=== PATIENT | female | born 1950 | race Two or more races ===

== ENCOUNTER 2024-04-22 12:06 | Emergency (ER) | payer MEDICARE, MEDICAID, SELFPAY ==
--- NOTE | 2024-04-22 | XR_ITS ---
Examination: MRI brain without intravenous contrast. Date and time of exam: April 22, 2024 1757 hours INDICATIONS: Onset episodes of dizziness ataxia inability to walk today Technique: Multiple axial and sagittal images of the brain obtained. Siemens high-resolution 1.5 Mili short bore scanners utilized. Sagittal sections, T1-weighted, TR 500, TE 14, are performed. Axial sections proton-density and T2-weighted have been obtained. Inversion recovery axial images, TR 9, 260, TE 111, TI 2500. Diffusion weighted images, axial sections, TR 4800, TE 128, B value 1000 Axial sections, ADC map, TR 4800, TE 128 Findings: Enlargement of the sella turcica is not present. The optic chiasm and infundibular are not remarkable. Prepontine and interpeduncular cisterns are not enlarged. There is no localized enlargement of the medulla or jane. Fourth ventricle and cerebellar tonsils appear normal in position. No subacute area of hemorrhage density is seen. Mass in the cerebellopontine angle region is not evident. Globes symmetrical. Orbital musculature including medial lateral rectus muscles do not exhibit abnormality. Diffusion-weighted images demonstrate no foci of restricted diffusion. Increased white matter signal prominent Mass effect upon the ventricular system is not identified. Impression: Negative for acute hemorrhage mass effect or midline shift No acute infarct Bilateral mastoiditis Prominent chronic microvascular white matter change If dizziness persists, recommend follow-up brain MRI post intravenous contrast, also consider carotid Doppler sonography follow-up
[2024-04-22 12:16] VITALS: BP 147/87; PULSE 77; RESP 17; TEMP 36.7; O2SAT 98; BMI 29.5
--- NOTE | 2024-04-22 12:25 | XR_ITS ---
Examination: CT brain head without contrast. 2-D sagittal coronal reconstructions Date and time of exam:April 22, 2024 1319 hours INDICATIONS: Headaches dizziness today, history bilateral chronic mastoiditis, right otitis externa on CT middle inner ear October 23, 2023 CTDI: vol (mGy):47.9 DLP: (mGycm):1044 Technique: Multiple CT axial sections of the brain have been obtained, 5 mm slice thickness. Contrast has not been administered. 2-D sagittal, coronal reconstructions have been obtained Low dose protocols were performed. One or more of the following dose reduction techniques were used; automated exposure control, adjustment of the mA and/or KV according to patient size, use of iterative reconstruction technique. Findings: No significant ventricular enlargement. Intra-axial or extra-axial hemorrhage density is not seen. No mass effect or midline shift Basal cisterns are not remarkable. Fourth ventricle is midline. Cranial vault intact. Impression: Negative for acute hemorrhage, mass effect or midline shift Advise clinical correlation follow-up accordingly
--- NOTE | 2024-04-22 12:33 | PD.EDRME ---
Rapid Medical Screening Exam RME Arrival date/time: 04/22/24 12:06 73-year-old female presents emergency department complaint of headache and dizziness Chief Complaint: Dizziness Vital signs: Vital Signs Temperature 98.0 F 04/22/24 12:16 Pulse Rate 77 04/22/24 12:16 Respiratory Rate 17 04/22/24 12:16 Blood Pressure 147/87 H 04/22/24 12:16 Pulse Oximetry (%) 98 04/22/24 12:16 Oxygen Delivery Method Room Air 04/22/24 12:16
[2024-04-22 13:07] LABS: Basophils % (Auto) 0 % (0-2.5); Eosinophils # (Auto) 0.1 Thou/mm3 (0.0-0.5); Eosinophils % (Auto) 2 % (0-10); Hematocrit 34.9 % (36.0-46.0); Hemoglobin 12.3 g/dL (12.0-16.0); Immature Granulocytes % (Auto) 0 % (0-0); Immature Granulocytes Auto 0.01 Thou/mm3 (0.00-0.00); Lymphocytes # (Auto) 2.1 Thou/mm3 (1.0-4.8); Lymphocytes % (Auto) 37 % (10-50); Mean Corpuscular HGB Conc 35.2 g/dl (31.0-37.0); Mean Corpuscular Hemoglobin 32.1 pg (25.0-35.0); Mean Corpuscular Volume 91 fL (80-100); Monocytes # (Auto) 0.3 Thou/mm3 (0.0-0.8); Monocytes % (Auto) 5 % (0-12); Neutrophils # (Auto) 3.1 Thou/mm3 (1.8-7.7); Neutrophils % (Auto) 55 % (37-80); Nucleated Red Blood Cell % 0 /100 WBC (0); Platelet Count 124 Thou/mm3 (140-440); RDW Standard Deviation 40.6 fL (36.4-46.3); Red Blood Count 3.83 Miln/mm3 (4.00-5.20); White Blood Count 5.7 Thou/mm3 (3.6-11.0)
[2024-04-22 13:24] LABS: Alanine Aminotransferase 20 U/L (10-49); Albumin, Serum 4.5 gm/dL (3.4-4.8); Albumin/Globulin Ratio 1.5 (1.2-2.2); Alkaline Phosphatase 73 U/L (46-116); Anion Gap 8 (7-16); Aspartate Amino Transferase 21 U/L (0-34); BUN/Creatinine Ratio 13 Ratio (12-20); Bilirubin,Total 0.6 mg/dL (0.3-1.2); Blood Urea Nitrogen 21 mg/dL (9-23); Calcium 9.6 mg/dL (8.3-10.6); Calcium (Corrected) 9.6 mg/dL (8.5-10.1); Carbon Dioxide 26.5 mMol/L (20.0-31.0); Chloride 102 mMol/L (98-107); Creatinine (Component) 1.6 mg/dL (0.6-1.3); Estimated Creatinine Clearance 32.6 mL/min (>60); Glucose 226 mg/dL (74-106); Osmolality,Calculated 281 (275-295); Potassium 4.5 mMol/L (3.4-5.1); Sodium 136 mMol/L (136-145); Total Protein 7.5 gm/dL (5.7-8.2); eGFR 34 See Note
--- NOTE | 2024-04-22 13:56 | EDNOTE_ITS ---
ED Dizzyness RME/HPI General Chief Complaint: Dizziness Stated Complaint: DIZZINESS, SANTOS Time Seen by Provider: 04/22/24 13:43 Arrival date/time: 04/22/24 12:06 RME / HPI RME / HPI Narrative: 73-year-old female presents emergency department complaint of headache and dizziness. Onset of symptoms since yesterday as sudden onset of dizziness, described as unable to walk due to balance problem. Associated with occipital headache. Described as dull extremity mild. Patient denies any spinning sensation. Denies any fever, slurring speech, upper or lower extremity lateralization sign. Denies any trauma or fall. No medications taken prior to arrival. Patient has significant history of lymphoma. Related Data Home Medications ?Medication ?Instructions ?Recorded ?Confirmed lorazepam 1 mg tablet 05/01/20 05/01/20 prochlorperazine maleate 10 mg 05/01/20 05/01/20 tablet Previous Rx's ?Medication ?Instructions ?Recorded ondansetron HCl 4 mg tablet 4 mg PO Q8H PRN nausea and 05/02/20 (Zofran) vomiting #30 tabs ciprofloxacin HCl 500 mg tablet 500 mg PO BID #20 tabs 10/23/23 (Cipro) amoxicillin 875 mg-potassium 1 tab PO BID #14 tabs 04/22/24 clavulanate 125 mg tablet meclizine 50 mg tablet 50 mg PO BID PRN dizziness #20 tabs 04/22/24 Allergies Allergy/AdvReac Type Severity Reaction Status Date / Time hydrocodone [From Vicodin] Allergy Severe Vomiting Verified 10/23/23 11:07 morphine Allergy Severe Vomiting Verified 10/23/23 11:07 tramadol Allergy Severe Dizziness Verified 10/23/23 11:07 Review of Systems Review of Systems Narrative Review of Systems: Review of system reviewed and within normal limits except mentioned in HPI ED Exam Narrative Physical exam: VITAL SIGNS: Reviewed. GENERAL APPEARANCE: Alert and interactive, follows commands, no acute distress, HEAD AND FACE: Non-traumatic. ENT: PERRL, pink conjunctivitis, eyelid no trauma, Mucous membrane moist. No nystagmus noted, tympanic membrane bilateral, no bulging, no erythema no fluid noted NECK: Supple, nontender, no nuchal rigidity. CHEST: No tenderness, no crepitus, no paradoxical movement, no retractions. LUNGS: Clear, well ventilated, symmetric, no rales, no wheezing, no ronchi, no stridor, good breath sounds bilaterally. HEART: Regular rate, regular rhythm, no murmur, no gallops. ABDOMEN: Soft, positive bowel sounds, nondistended, no guarding, nontender, no rebound, no masses, RECTAL: Deferred. GENITAL: Deferred. NEUROLOGICAL: Gross motor function intact sensory function intact, Appropriate for age. MUSCULOSKELETAL: low back nontender, full range of motion. EXTREMITIES: Nontender, full range of motion. SKIN: Color pink, dry, no rash, no lacerations, no abrasions, no contusions. LYMPHATICS: Deferred. Course Quality Measures none Orders Category Date Time Status MRI Screening NOW Care 04/22/24 13:55 Active MRI Screening NOW Care 04/22/24 13:[address] head/brain wo con Stat Exams 04/22/24 12:25 Completed MR head/brain wo con Stat Exams 04/22/24 Completed CBC Stat Lab 04/22/24 12:38 Completed CMP [Comprehensive Metabolic Panel] Stat Lab 04/22/24 12:38 Completed Amoxicillin/Pot Clav 875 [Augmentin 875] Med 04/22/24 19:22 Discontinued 1 tab PO X1 ONE Meclizine HCl [Antivert] Med 04/22/24 13:55 Discontinued 50 mg PO X1 ONE Ondansetron Odt [Zofran Odt] Med 04/22/24 13:55 Discontinued 4 mg PO X1 ONE Vital Signs Vital signs: Vital Signs Temperature 98.0 F 04/22/24 12:16 Pulse Rate 77 04/22/24 12:16 Respiratory Rate 17 04/22/24 12:16 Blood Pressure 147/87 H 04/22/24 12:16 Pulse Oximetry (%) 98 04/22/24 12:16 Oxygen Delivery Method Room Air 04/22/24 12:16 Dizziness MDM Narrative MDM Narrative:: MRI of the brain showed Negative for acute hemorrhage mass effect or midline shift No acute infarct Bilateral mastoiditis Prominent chronic microvascular white matter change If dizziness persists, recommend follow-up brain MRI post intravenous contrast, also consider carotid Doppler sonography follow-up Results discussed with the patient. Patient received Augmentin and meclizine in the emergency room with complete resolution of dizziness. Patient is ambulatory with stable gait. Patient data External records reviewed:: None Clinical information provided by:: none Social determinants that could affect healthcare access:: none Patient has the following chronic illnesses:: Diabetes mellitus, lymphoma How is presenting disease/condition affected by chronic disease/condition?: exacerbated by Evaluation data The following diagnostics were reviewed and interpreted by me:: lab results and radiology exam(s) Lab and/or radiology exams considered but not ordered:: None Interpretation Summary: MRI of the brain showed Negative for acute hemorrhage mass effect or midline shift No acute infarct Bilateral mastoiditis Prominent chronic microvascular white matter change If dizziness persists, recommend follow-up brain MRI post intravenous contrast, also consider carotid Doppler sonography follow-up Medications / Prescriptions Medications or Prescriptions considered but not ordered:: None Medication administrations:: Medication Administration History Discontinued Medications Amoxicillin/Clavulanate Potassium (Amoxicillin/Pot Clav 875 Tablet) 1 tab PO X1 ONE Stop: 04/22/24 19:23 Meclizine HCl (Meclizine Hcl 25 Mg Tablet) 50 mg PO X1 ONE Stop: 04/22/24 13:56 Last Admin: 04/22/24 14:14 Dose: 50 mg Documented By: SILVIA Ondansetron HCl (Ondansetron Odt 4 Mg Tabrap) 4 mg PO X1 ONE; Protocol Stop: 04/22/24 13:56 Last Admin: 04/22/24 14:14 Dose: 4 mg Documented By: SILVIA Meclizine Augmentin Consultations Consultation(s) initiated? (list below): No Diagnosis Dizziness Differential Diagnosis: benign paroxysmal positional vertigo, vertebral basilar insufficiency and other (Dizziness,) Most likely diagnosis given after review of the tests above:: Dizziness, acute mastoiditis Admission Indicated Admission indicated?: not indicated Admission Request Was there a request for admission?: No Disposition Plan Disposition Plan: Discharge Discharge Attestation Discharge Attestation: The patient and all family members were given an opportunity to ask questions and understood the discharge instructions. Discharge instructions specifically effects, indications for sooner follow up or return to the emergency department, and the expected course of current diagnosis. Patient condition: Stable Discharge Plan Plan Patient Disposition: HOME (Self Care) Disposition Comment: stable Prescriptions/Referrals Prescriptions/Med Rec: New amoxicillin-pot clavulanate 875-125 mg tablet 1 tab PO BID Qty: 14 0RF meclizine 50 mg tablet 50 mg PO BID PRN (Reason: dizziness) Qty: 20 0RF No Action prochlorperazine maleate 10 mg tablet lorazepam 1 mg tablet Patient Comments: TK 1 T PO QD HS PRF [employer] ondansetron HCl [Zofran] 4 mg tablet 4 mg PO Q8H PRN (Reason: nausea and vomiting) Qty: 30 0RF ciprofloxacin HCl [Cipro] 500 mg tablet 500 mg PO BID Qty: 20 0RF Referrals: Falguni Reis PA-C [Primary Care Provider] - In 1 week Problem List Clinical Impression: Dizziness, Acute mastoiditis Patient/Caregiver Discharge Instructions Discharge Activity: activity as tolerated Education Materials: ED Dizziness, Uncertain Cause Additional Instructions: Thank you for the opportunity for serving you today. You are stable for d ischarged . You are advised to: Follow-up with your PCP in 1 to 2 days and asked for referral to ENT Return to ED for worsening of symptoms Increase oral fluids Take medication as prescribed Print Language: Guatemalan Stand Alone Forms: [employer] Award Info., Patient Portal Info Letter FERNANDO/COURTNEY Supervising Physician FERNANDO/COURTNEY Supervising Physician: MD Remy
[2024-04-22] MEDS: ONDANSETRON ODT 4 MG TABRAP PO (14:14)
[2024-04-22] MEDS: MECLIZINE HCL 25 MG TABLET 50 MG PO (14:14)
[2024-04-22 16:07] VITALS: BP 132/85; PULSE 74; RESP 18; TEMP 37; O2SAT 98
[2024-04-22 18:42] VITALS: BP 150/86; PULSE 78; RESP 16; TEMP 37.1; O2SAT 98
[2024-04-22] MEDS: AMOXICILLIN/POT CLAV 875 TABLET 1 TAB PO (19:36)
== END 2024-04-22 19:55 | disposition home or self-care (01) ==
PROVIDERS: Nurse Practitioner Primary Care; Emergency Provider Emergency Medicine; PCP Physician Assistant
DX: H70.003 Acute mastoiditis without complications, bilateral (principal); R42 Dizziness and giddiness
CPT/HCPCS: 36415; 70450; 70551; 80053; 85025; 99284; Q0162; A9270

== ENCOUNTER 2024-05-17 11:57 | Emergency (ER) | payer MEDICARE, MEDICAID, SELFPAY ==
[2024-05-17 11:59] VITALS: BMI 28.3
--- NOTE | 2024-05-17 12:18 | EKG_ITS ---
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
[2024-05-17 12:47] VITALS: BP 114/78; PULSE 110; RESP 18; TEMP 36.9; O2SAT 98
--- NOTE | 2024-05-17 13:12 | XR_ITS ---
Examination: PA lateral chest 2 views TECHNIQUE: Upright PA lateral chest 2 views Exam date and time: May 17, 2024 Comparison April 29, 2020 INDICATIONS: Coughing weakness dizziness beginning one month ago. FINDINGS: No significant cardiac enlargement Ectatic thoracic aorta. No pneumonia or pulmonary edema IMPRESSION: No active disease
--- NOTE | 2024-05-17 13:13 | PD.EDRME ---
Rapid Medical Screening Exam RME Arrival date/time: 05/17/24 11:57 73-year-old female presents to the emergency department complaints of generalized weakness Chief Complaint: Dizziness Vital signs: Vital Signs Temperature 98.5 F 05/17/24 12:47 Pulse Rate 110 H 05/17/24 12:47 Respiratory Rate 18 05/17/24 12:47 Blood Pressure 114/78 05/17/24 12:47 Pulse Oximetry (%) 98 05/17/24 12:47 Oxygen Delivery Method Room Air 05/17/24 12:47
[2024-05-17 14:01] LABS: Basophils % (Auto) 0 % (0-2.5); Eosinophils # (Auto) 0.1 Thou/mm3 (0.0-0.5); Eosinophils % (Auto) 2 % (0-10); Hematocrit 36.8 % (36.0-46.0); Hemoglobin 12.8 g/dL (12.0-16.0); Immature Granulocytes % (Auto) 1 % (0-0); Immature Granulocytes Auto 0.03 Thou/mm3 (0.00-0.00); Lymphocytes # (Auto) 1.7 Thou/mm3 (1.0-4.8); Lymphocytes % (Auto) 29 % (10-50); Mean Corpuscular HGB Conc 34.8 g/dl (31.0-37.0); Mean Corpuscular Hemoglobin 31.5 pg (25.0-35.0); Mean Corpuscular Volume 91 fL (80-100); Monocytes # (Auto) 0.4 Thou/mm3 (0.0-0.8); Monocytes % (Auto) 6 % (0-12); Neutrophils # (Auto) 3.7 Thou/mm3 (1.8-7.7); Neutrophils % (Auto) 63 % (37-80); Nucleated Red Blood Cell % 0 /100 WBC (0); Platelet Count 139 Thou/mm3 (140-440); RDW Standard Deviation 39.5 fL (36.4-46.3); Red Blood Count 4.06 Miln/mm3 (4.00-5.20)
[2024-05-17 14:23] LABS: Alanine Aminotransferase 37 U/L (10-49); Albumin, Serum 4.3 gm/dL (3.4-4.8); Albumin/Globulin Ratio 1.3 (1.2-2.2); Alkaline Phosphatase 84 U/L (46-116); Anion Gap 8 (7-16); Aspartate Amino Transferase 30 U/L (0-34); BUN/Creatinine Ratio 13 Ratio (12-20); Bilirubin,Total 0.9 mg/dL (0.3-1.2); Blood Urea Nitrogen 22 mg/dL (9-23); Calcium 10.1 mg/dL (8.3-10.6); Calcium (Corrected) 10.1 mg/dL (8.5-10.1); Carbon Dioxide 27.1 mMol/L (20.0-31.0); Chloride 98 mMol/L (98-107); Creatinine (Component) 1.7 mg/dL (0.6-1.3); Estimated Creatinine Clearance 30.1 mL/min (>60); Globulin 3.3 gm/dL (2.3-3.5); Glucose 370 mg/dL (74-106); Lipase 52 U/L (12-53); Osmolality,Calculated 284 (275-295); Potassium 4.2 mMol/L (3.4-5.1); Sodium 133 mMol/L (136-145); Total Protein 7.6 gm/dL (5.7-8.2); Troponin I < 0.020 ng/mL (0.0-0.045); eGFR 32 See Note
[2024-05-17 16:33] LABS: Collection Type, Urine Clean Catch
[2024-05-17 16:45] VITALS: BP 140/102; PULSE 92; RESP 16; TEMP 37; O2SAT 97
[2024-05-17 16:59] LABS: Bilirubin,Urine Negative (Negative); Blood,Urine Trace (Negative); Clarity,Urine Clear (Clear/Hazy); Color,Urine Lt-Yellow (Lt Yel-Yel); Glucose, Urine 4+ (Negative); Ketones,Urine Negative (Negative); Leukocyte Esterase,Urine Positive (Negative); Nitrite,Urine Negative (Negative); PH,Urine 5.5 (5.0-7.0); Protein,Urine Trace (Neg - Trace); RBC,Urine 3 /hpf (0-3); Specific Gravity,Urine 1.014 (1.001-1.035); Squamous Epithelial Cell,Urine 2 /hpf (0-5); Transitional Epi Cells,Urine 1 /hpf (0-5); Urobilinogen,Urine Negative mg/dL (0.0-1.0); WBC,Urine 11 /hpf (0-5)
[2024-05-17 17:00] LABS: Culture Indicated,Urine Yes
--- NOTE | 2024-05-17 17:16 | EDNOTE_ITS ---
ED General RME/HPI General Chief complaint: Dizziness Stated complaint: DIZZINESS AND WEAKNESS Time Seen by Provider: 05/17/24 16:29 Arrival date/time: 05/17/24 11:57 CC: Dizziness HPI ongoing for the past month, the patient states he was seen here on April 22 was given meclizine without any significant relief the patient states she is persistently dizzy. States that the room is spinning. Patient denies fever chills but is complaining of intermittent nausea at this time. Patient is awake alert oriented nontoxic-appearing not in any acute distress. RME / HPI RME / HPI narrative: 05/17/24 11:57 73-year-old female presents to the emergency department complaints of generalized weakness Related Data Home Medications ?Medication ?Instructions ?Recorded ?Confirmed lorazepam 1 mg tablet 05/01/20 05/01/20 prochlorperazine maleate 10 mg 05/01/20 05/01/20 tablet Previous Rx's ?Medication ?Instructions ?Recorded ondansetron HCl 4 mg tablet 4 mg PO Q8H PRN nausea and 05/02/20 (Zofran) vomiting #30 tabs ciprofloxacin HCl 500 mg tablet 500 mg PO BID #20 tabs 10/23/23 (Cipro) amoxicillin 875 mg-potassium 1 tab PO BID #14 tabs 04/22/24 clavulanate 125 mg tablet meclizine 50 mg tablet 50 mg PO BID PRN dizziness #20 tabs 04/22/24 Allergies Allergy/AdvReac Type Severity Reaction Status Date / Time hydrocodone [From Vicodin] Allergy Severe Vomiting Verified 05/17/24 11:59 morphine Allergy Severe Vomiting Verified 05/17/24 11:59 tramadol Allergy Severe Dizziness Verified 05/17/24 11:59 Review of Systems Review of Systems Narrative Review of Systems: GEN: No fever, no chills, no weight loss EYES: No discharge, no visual changes, no pain HEENT: No ear pain, no congestion, no sore throat PULM: No shortness of breath, no cough, no congestion CV: No chest pain, no dyspnea on exertion, no palpitations GI: No nausea, no vomiting, no diarrhea, no pain, no constipation : No frequency, no urgency, no dysuria MUSC/SKEL: No joint pain, no back pain SKIN: No rash PSYCH: No hallucinations, no depression HEME/LYMPH: No easy bleeding or bruising tendencies NEURO: No weakness, no headache Past Medical History Past Medical History NEUROLOGIC: Negative Neurological Disorders, Seizures or Hugo's Palsy CARDIAC: Positive Cardiac Arrhythmia, Angina, Edema and Hypotension; Negative Cardiac Disorders, Congestive Heart Failure, Cellulitis or Varicose Veins RESPIRATORY: Positive Pneumonia; Negative Chronic Obstructive Pulmonary Disease (COPD), Tuberculosis or Sleep Apnea GASTROINTESTINAL: Positive Gastrointestinal Disorders, Cirrhosis (20 years old), Gall Bladder Disease (removal of GB) and Ulcer; Negative Hepatitis GENITOURINARY: Negative Genitourinary Disorders or Renal Disease REPRODUCTIVE: Positive Previous Pregnancies MUSCULOSKELETAL: Positive Musculoskeletal Disorders, Arthritis and Degenerative Disk Disease; Negative Gout, Scoliosis, Fibromyalgia or Fractures ENDOCRINE: Negative Endocrine Disorders, Diabetes Mellitus Type 1 or Diabetes Mellitus Type 2 HEMATOLOGIC: Positive Blood Disorders and Anemia OTHER HISTORY: Positive Hospitalization, Blood Transfusions, Chemotherapy and Cancer (lymphoma); Negative Autoimmune Disease, Shingles, Falls, Blood Transfusion Reaction, Anesthesia Reactions, Radiation Therapy, MRSA, Chicken Pox, Measles or Mumps Family History FAMILY HISTORY: Positive Family Cancer and Family Surgery; Negative Family Psychiatric Problems, Family Respiratory Disorders, Family Cardiac Disorders, Family Gastrointestinal Problems or Family Anesthesia Reaction Surgical History SURGICAL: Positive Abdominal Surgery and Tubal Ligation; Negative Pacemaker Social History SMOKING STATUS: Never smoker SUBSTANCE USE: does not use ED Exam Narrative Physical exam: [General: Obese not in any acute distress Head normocephalic HEENT: Eyes pupils are PERRLA EOMs are intact there is mild lateral nystagmus no vertical nystagmus. Mouth pink moist membranes uvula is midline swallow symmetrical phonation is normal. All other subsystems of HEENT are within acceptable limits Neck is supple nontender Chest equal chest rise nontender to palpation Respiratory: Clear to auscultation no wheezes crackles or rubs CV: Rate rhythm is regular no murmurs rubs or clicks Abdomen is distended secondary to body habitus soft nontender no masses positive bowel sounds all 4 quadrants Back: No CVA tenderness no spinous process tenderness from cervical spine thoracic and lumbar spine Skin: Intact no petechiae rash induration ulceration or crepitus Extremities: Moving all extremity against resistance cap refill less than 2 seconds neurosensory intact Neuro: Awake alert oriented x3 Glascow coma 15 no focal deficits] Course Course Course Narrative: Reexamination of this patient after Reglan, the patient has no relief in her dizziness. Review the medical record show that the patient had a CT and MRI of the last visit 3 weeks ago which were both negative this time patient be discharged home to follow-up with neurology. Quality Measures none Orders Category Date Time Status EKG (ED ONLY) *Do not use* NOW Care 05/17/24 12:18 Completed Saline [Insert IV] NOW Care 05/17/24 17:14 Active EKG (ED Only) Stat Exams 05/17/24 12:18 Ordered XR chest 2V Stat Exams 05/17/24 13:12 Completed CBC Stat Lab 05/17/24 13:36 Completed Comprehensive Metabolic Panel Stat Lab 05/17/24 13:36 Completed Lipase Stat Lab 05/17/24 13:36 Completed Troponin I Stat Lab 05/17/24 13:36 Completed UA, C/S IF [Urinalysis, C/S if Indicated] Stat Lab 05/17/24 16:30 Completed Urine Culture Stat Lab 05/17/24 16:30 Received Metoclopramide Inj [Reglan Inj] Med 05/17/24 17:14 Discontinued 10 mg IVP X1 ONE Vital Signs Vital signs: Vital Signs Temperature 98.5 F 05/17/24 12:47 Pulse Rate 110 H 05/17/24 12:47 Respiratory Rate 18 05/17/24 12:47 Blood Pressure 114/78 05/17/24 12:47 Pulse Oximetry (%) 98 05/17/24 12:47 Oxygen Delivery Method Room Air 05/17/24 12:47 [facility] Patient data External records reviewed:: [facility] previous records Clinical information provided by:: patient Social determinants that could affect healthcare access:: none Patient has the following chronic illnesses:: Diabetes lymphoma How is presenting disease/condition affected by chronic disease/condition?: u neffected by Evaluation data The following diagnostics were reviewed and interpreted by me:: lab results, radiology exam(s) and EKG tracing(s) Lab and/or radiology exams considered but not ordered:: EKG performed at 1255 shows a ventricular rate of 104 RI interval 149 QRS of 6 4 QTc of 3 9 sinus tachycardia. CBC shows no acute leukocytosis anemia thrombocytopenia CMP shows mild hyperglycemia, no other electrolyte imbalances patient's creatinine is 1.7 which essentially unchanged. No transaminitis or T. bili elevation. Troponin is negative Urine is negative Interpretation Summary: Vertigo Medications Medications considered but not ordered:: None Medication administrations:: Medication Administration History Discontinued Medications Metoclopramide HCl (Metoclopramide Inj 5 Mg/Ml Vial 2 Ml) 10 mg IVP X1 ONE; Protocol Stop: 05/17/24 17:15 Last Admin: 05/17/24 17:43 Dose: 10 mg Documented By: KEN None Consultations Consultation(s) initiated? (list below): No Diagnosis Differential Diagnosis ED Complaint MDM: Benign positional vertigo M?ni?re's syndrome, electrolyte imbalance Most likely diagnosis given after review of the tests above:: Vertigo Admission Indicated Admission indicated?: not indicated Explain why admission is indicated or not indicated:: Stable for outpatient follow-up Admission Request Was there a request for admission?: No Disposition Plan Disposition Plan: Discharge Discharge Attestation Discharge Attestation: The patient and all family members were given an opportunity to ask questions and understood the discharge instructions. Discharge instructions specifically effects, indications for sooner follow up or return to the emergency department, and the expected course of current diagnosis. Patient condition: Stable Medical Decision Making Differential Diagnosis Differential Diagnosis: Benign positional vertigo M?ni?re's syndrome, electrolyte imbalance Lab Data 05/17/24 13:36 05/17/24 13:36 Labs: Lab Results 05/17/24 05/17/24 Range/Units 13:36 16:30 WBC 6.0 (3.6-11.0) Thou/mm3 RBC 4.06 (4.00-5.20) Miln/mm3 Hgb 12.8 (12.0-16.0) g/dL Hct 36.8 (36.0-46.0) % MCV 91 (80-100) fL MCH 31.5 (25.0-35.0) pg MCHC 34.8 (31.0-37.0) g/dl RDW Std Deviation 39.5 (36.4-46.3) fL Plt Count 139 L (140-440) Thou/mm3 Neut % (Auto) 63 (37-80) % Lymph % (Auto) 29 (10-50) % Steele % (Auto) 6 (0-12) % Eos % (Auto) 2 (0-10) % Baso % (Auto) 0 (0-2.5) % Neut # (Auto) 3.7 (1.8-7.7) Thou/mm3 Lymph # (Auto) 1.7 (1.0-4.8) Thou/mm3 Steele # (Auto) 0.4 (0.0-0.8) Thou/mm3 Eos # (Auto) 0.1 (0.0-0.5) Thou/mm3 Baso # (Auto) 0.0 (0.0-0.2) Thou/mm3 Immature Gran # (Auto) 0.03 H (0.00-0.00) Thou/mm3 Absolute Nucleated RBC 0.00 (0.00-0.00) Thou/mm3 Immature Gran % 1 H (0-0) % Nucleated RBC % 0 (0) /100 WBC Sodium 133 L (136-145) mMol/L Potassium 4.2 (3.4-5.1) mMol/L Chloride 98 (98-107) mMol/L Carbon Dioxide 27.1 (20.0-31.0) mMol/L Anion Gap 8 (7-16) BUN 22 (9-23) mg/dL Creatinine 1.7 H (0.6-1.3) mg/dL Estim Creat Clear Calc 30.1 L (>60) mL/min eGFR 32 L (60 - ) See Note BUN/Creatinine Ratio 13 (12-20) Ratio Glucose 370 H (74-106) mg/dL Calculated Osmolality 284 (275-295) Calcium 10.1 (8.3-10.6) mg/dL Corrected Calcium 10.1 (8.5-10.1) mg/dL Total Bilirubin 0.9 (0.3-1.2) mg/dL AST 30 (0-34) U/L ALT 37 (10-49) U/L Alkaline Phosphatase 84 (46-116) U/L Troponin I < 0.020 (0.0-0.045) ng/mL Total Protein 7.6 (5.7-8.2) gm/dL Albumin 4.3 (3.4-4.8) gm/dL Globulin 3.3 (2.3-3.5) gm/dL Albumin/Globulin Ratio 1.3 (1.2-2.2) Lipase 52 (12-53) U/L Ur Collection Type Clean Catch Urine Color Lt-Yellow (Lt Yel-Yel) Urine Clarity Clear (Clear/Hazy) Urine pH 5.5 (5.0-7.0) Ur Specific [place] 1.014 (1.001-1.035) Urine Protein Trace (Neg - Trace) Urine Glucose (UA) 4+ A (Negative) Urine Ketones Negative (Negative) Urine Blood Trace (Negative) Urine Nitrite Negative (Negative) Urine Bilirubin Negative (Negative) Urine Urobilinogen (Auto) Negative (0.0-1.0) mg/dL Ur Leukocyte Esterase Positive (Negative) Urine RBC 3 (0-3) /hpf Urine WBC 11 H (0-5) /hpf Ur Squamous Epith Cells 2 (0-5) /hpf Ur Transition Epith Cell 1 (0-5) /hpf Urine Bacteria None (None) Ur Culture Indicated? 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 ondansetron HCl [Zofran] 4 mg tablet 4 mg PO Q8H PRN (Reason: nausea and vomiting) Qty: 30 0RF amoxicillin-pot clavulanate 875-125 mg tablet 1 tab PO BID Qty: 14 0RF meclizine 50 mg tablet 50 mg PO BID PRN (Reason: dizziness) Qty: 20 0RF ciprofloxacin HCl [Cipro] 500 mg tablet 500 mg PO BID Qty: 20 0RF Referrals: Falguni Reis PA-C [Primary Care Provider] - In 1 week Jessica Resendez MD [Resident] - In 1 week Problem List Clinical Impression: Vertigo Patient/Caregiver Discharge Instructions Other Activity Instructions:: Follow-up with the neurologist did not represcribe the meclizine as it does not work. If is a worsening of symptoms return to the emergency room for reevaluation. Education Materials: ED Dizziness, Uncertain Cause Print Language: Mohawk Stand Alone Forms: [place] Award Info., Patient Portal Info Letter, Work/School Release PA/COURTNEY Supervising Physician PA/COURTNEY Supervising Physician: Kael Burris ENP
[2024-05-17] MEDS: METOCLOPRAMIDE INJ 5 MG/ML VIAL 2 ML 10 MG IVP (17:43)
[2024-05-17 18:37] VITALS: BP 122/68; PULSE 87; RESP 18; TEMP 36.6; O2SAT 98
== END 2024-05-17 19:04 | disposition home or self-care (01) ==
PROVIDERS: Nurse Practitioner Primary Care; Emergency Provider Emergency Medicine; PCP Physician Assistant
DX: R42 Dizziness and giddiness (principal); R53.1 Weakness; R11.0 Nausea; E11.9 Type 2 diabetes mellitus without complications; R00.0 Tachycardia, unspecified
CPT/HCPCS: 36415; 71046; 80053; 81001; 83690; 84484; 85025; 87086; 93005; 96374; 99284; J2765

== ENCOUNTER → 2024-08-02 | Outpatient (CLI) | payer MEDICARE, MEDICAID, SELFPAY ==
--- NOTE | 2024-08-02 14:15 | XR_ITS ---
Examination: Screening digital mammography, bilateral Computer aided detection 3-D breast Tomosynthesis, bilateral Date and time of exam: August 02, 2024 1539 hours Compared to mammograms dating to June 22, 2019 Indication: Screening Technique: Nonmagnified MLO, CC views of the breasts to been obtained, reconstructed from 3-D Tomosynthesis images. R2 computer aided detection program utilized for evaluation of suspicious masses and/or abnormal calcifications. 3-D Tomosynthesis images obtained. Findings: Scattered areas of fibroglandular density Stable nodule with breast biopsy marker retroareolar region right breast No interval suspicious masses Impression: BI-RADS category II: Benign Findings. Recommend 1 year follow-up mammogram. Consider repeat right breast sonography to confirm stability of the 9:00 nodule right breast 9 x 9 mm on right breast sonogram June 06, 2023
== END | disposition home or self-care (01) ==
LOC: CDIM 13:25
PROVIDERS: PCP Physician Assistant; Referring Provider Physician Assistant; Visit Provider Physician Assistant
DX: Z12.31 Encounter for screening mammogram for malignant neoplasm of breast (principal); R92.323 Mammographic fibroglandular density, bilateral breasts; N63.15 Unspecified lump in the right breast, overlapping quadrants
CPT/HCPCS: 77063; 77067

== ENCOUNTER → 2024-11-04 | Outpatient (CLI) | payer MEDICARE, MEDICAID, SELFPAY ==
--- NOTE | 2024-11-04 10:30 | XR_ITS ---
Examination: CT soft tissue neck, with intravenous contrast. CT soft tissue neck without intravenous contrast 2-D coronal reconstructions. 2-D sagittal reconstructions. Date and time of exam :November 04, 2024 1033 hours INDICATIONS: Diagnosis benign neoplasm lymph nodes, history lymphoma 2015 left-sided neck pain one year. CTDI: vol (mGy):49.6 DLP: (mGycm):849 Technique: 1.25 mm axial sections of the neck of the obtained. Coronal and sagittal reconstructions have been obtained. Intravenous contrast administered 50 cc Isovue-370. Low dose protocols were performed. One or more of the following dose reduction techniques were used; automated exposure control, adjustment of the mA and/or KV according to patient size, use of iterative reconstruction technique. Findings: Symmetrical nasopharynx oropharynx No pathologic carotid triangle or submental lymph nodes Symmetrical submandibular glands The larynx appears normal 20 mm right thyroid nodule Normal epiglottis Lung apices clear IMPRESSION: No pathologic lymphadenopathy Normal larynx Normal epiglottis 20 mm right thyroid nodule, recommend dedicated thyroid sonography follow-up
== END | disposition home or self-care (01) ==
PROVIDERS: PCP Physician Assistant; Referring Provider Psychiatry & Neurology Neurology; Visit Provider Psychiatry & Neurology Neurology
DX: E04.1 Nontoxic single thyroid nodule (principal)
CPT/HCPCS: 70492; A4649; Q9967

== ENCOUNTER → 2024-12-22 | Outpatient (CLI) | payer MEDICARE, MEDICAID, SELFPAY ==
--- NOTE | 2024-12-22 16:30 | XR_ITS ---
Examination: CT middle inner ear, without contrast. 2-D coronal reconstructions. 2-D sagittal reconstructions. Date and time of exam: December 22, 2024 1412 hours INDICATIONS: Tinnitus left ear 5 years CTDI: vol (mGy): 14.8 DLP: (mGycm):201 Technique: Multiple 1.0 mm axial sections of the middle inner ears bilaterally. High-resolution 64 slice scanner utilized. 2-D coronal reconstructions 2-D sagittal reconstructions Low dose protocols were performed. One or more of the following dose reduction techniques were used; automated exposure control, adjustment of the mA and/or KV according to patient size, use of iterative reconstruction technique. Findings: Axial sections of the right demonstrate significantly reduced mastoid aeration. Jugular fossa and carotid canal do not appear remarkable. No deformity of the ossicles. Porus acusticus internus does not exhibit erosion. Cochlear apparatus unremarkable. Semicircular canals normal. Right otitis externa Coronal reconstructions demonstrate no erosion of the scutum. No soft tissue mass in the attic or Prussak's space is seen. Ossicular mass intact. Axial sections of the left demonstrate significantly reduced mastoid aeration. Jugular fossa and carotid canal do not appear remarkable. No deformity of the ossicles. Porus acusticus internus does not exhibit erosion. Cochlear apparatus unremarkable. Semicircular canals normal. External auditory canal open Coronal reconstructions demonstrate no erosion of the scutum. No soft tissue mass in the attic or Prussak's space is seen. Ossicular mass intact. Roof of the mastoid air cells appear intact bilaterally. Impression: Bilateral significant chronic mastoiditis Mild left acute mastoiditis Right otitis externa. Negative for bilateral otitis media
== END | disposition home or self-care (01) ==
LOC: CCTX 15:48
PROVIDERS: PCP Physician Assistant; Referring Provider Physician Assistant; Visit Provider Physician Assistant
DX: H70.13 Chronic mastoiditis, bilateral (principal); H70.002 Acute mastoiditis without complications, left ear; H60.91 Unspecified otitis externa, right ear
CPT/HCPCS: 70480

== ENCOUNTER → 2025-02-04 | Outpatient (CLI) | payer MEDICARE, MEDICAID, SELFPAY ==
--- NOTE | 2025-02-04 08:45 | XR_ITS ---
Examination: Breast ultrasound, unilateral, right Date and time of exam: February 04, 2025 0848 hours INDICATIONS: Right breast sonogram June 06, 2023 9:00 nodule with breast biopsy marker 9 x 9 mm Technique: Real-time morelos scale ultrasonographic imaging performed right breast including all 4 quadrants as well as nipple retroareolar and axillary region. Findings: 9:00 nodule lobular margins 10 x 11 mm IMPRESSION: BI-RADS Category 3: Probably benign findings Mild enlargement nodule 9:00 position right breast Continued 6 month follow-up right breast sonography strongly recommended to document stability of this nodule
== END | disposition home or self-care (01) ==
PROVIDERS: PCP Physician Assistant; Referring Provider Physician Assistant; Visit Provider Physician Assistant
DX: N63.15 Unspecified lump in the right breast, overlapping quadrants (principal)
CPT/HCPCS: 76641